=== PATIENT | male | born 1945 | race Caucasian/White ===

== ENCOUNTER 2023-10-12 16:09 | Observation (INO) | payer MEDICARE, OTHER, SELFPAY ==
[2023-10-12] VITALS (11 sets, daily range): BP systolic 136–160; BP diastolic 64–87; PULSE 71; O2SAT 96; BMI 29.5
--- NOTE | 2023-10-12 11:30 | ED.GENMED ---
History of Present Illness
General
Chief Complaint: Weakness
Source: patient and ambulance crew
Exam Limitations: none
Time Seen by Provider: 10/12/23 11:30
Nursing documentation reviewed up to this point in time: agreed with
History of Present Illness
History of Present Illness:
78-year-old male with history of HTN, HLD, CVA, prostate cancer with prostatectomy 2013, presents via EMS who states daughter was unable to reach patient by phone this morning, she called a neighbor who checked on patient, could not get into the
house, called the police, please had to crawl through a window and found patient on the floor of his bedroom, alert, mildly confused stating he did not fall rather he was weak and put himself onto the floor. He reportedly states he was on the floor
for a 'couple of hours.'
Past History
Past History
ED Past Medical History: CVA and Other (Diverticulosis and diverticulitis)
ED Past Surgical History: None
Social History
Tobacco: Non-smoker
Alcohol: Occasional
Personal:
Living: with family
Family History
Family History: Negative Diabetes, Hypertension, Early CAD, Asthma or Cancer
Review of Systems
Review of Systems
Allergies reviewed?: Yes
All Other Systems: ROS reviewed and negative except as documented in HPI and ROS
Constitutional: Reports fatigue; Denies fever
EENT: Denies sore throat
Respiratory: Denies trouble breathing
Cardiac: Denies chest pain or syncope
ABD/GI: Denies abdominal pain, nausea, vomiting, diarrhea, constipated or anorexia
: Reports incontinence; Denies dysuria, frequency, difficulty voiding or urgency
Musculoskeletal: Reports no symptoms
Skin: Reports no symptoms
Neurological: Reports no symptoms
Phy Exam
Physical Exam
Physical Exam:
GENERAL: No acute distress. A&Ox3.
CONSTITUTIONAL: Afebrile.
EYES: PERRL, conjunctivae normal
Neck: Supple
ENMT: moist mucus membranes, Pharynx nl
RESPIRATORY: Regular respirations, nonlabored, lungs clear.
CARDIOVASCULAR: Regular rate and rhythm, no murmurs, no rubs.
GI: Soft, nontender, normal BS
MUSCULOSKELETAL: No spinal bony tenderness. No tenderness of extremities. Nod edema. Well perfused.
SKIN: Warm, dry, pink
PSYCH: Normal mood and affect. Well kept, interactive and appropriate
NEUROLOGIC: Awake, alert and oriented x 3. Knows place, name, president. Not sure on year. Speech clear. Strength equal throughout /5. No focal neurological deficits
Course
Orders/Labs/Results
Orders:
Orders
10/12/23 11:30
0.9% Sodium Chloride 1000 ml [Nss] 1,000 ml IV BOLUS
10/12/23 11:33
CT Head W/o Iv Contrast Urgent
Comment:
Reason For Exam: weakness, found awake on floor
10/12/23 11:40
CPK Isoenzyme Urgent
Complete Blood Count/With Diff Urgent
Comprehensive Metabolic Panel Urgent
Troponin I Urgent
Comment: ADD ON
10/12/23 11:58
Add On- LAB Urgent
Tests Added?: Troponin
10/12/23 11:59
Electrocardiogram (*1) Urgent
Reason for Study: Fatigue / Weakness
EKG- Treatment ONCE
10/12/23 12:30
Urinalysis Reflex To Culture Urgent
Date Specimen was Collected: 10/12/23
Time Specimen was Collected: 12:29
10/12/23 12:55
Case Management Consult ONCE
Case Management Consult: Discharge Planning
Comment: Pt w falls, not safe at home, live by self. 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 She is in
process of selling his home and she needs to put addition on her home before he moves in. Is
interested in rehab for him.
10/12/23 13:04
Physical Therapy Consult [Pt Eval And Treat] Urgent
Treatment: ambulate, uses cane, doesn't have his here, falls.
Activity Level: As Tolerated
10/12/23 15:28
Admit/Transfer Patient As Directed
Co-Sign Provider:
Level of Care: Observation services
Assign to:: Telemetry
Physician / Group: molly rodriguez
Diagnosis: ambulatory dysfunction
Reason for Telemetry: Other
Other Reason for Telemetry: fall
Date to Stop Telemetry: 10/14/23
Time to Stop Telemetry: 11:00
10/12/23 15:29
Code Status As Directed
Resuscitation Status: Full Code
10/12/23 15:45
COVID-19 Antigen Stat
Source: Nasal Swab
10/14/23 11:00
DC Protocol for Telemetry ONCE
Abnormal Lab Results
10/12/23 10/12/23
11:40 12:30
RBC 3.83 L 10^6/uL
(4.70-6.10)
Hgb 11.6 L g/dL
(13.0-18.0)
Hct 35.4 L %
(39.0-52.0)
MCHC 32.8 L g/dL
(33.0-37.0)
RDW 15.1 H %
(11.5-14.5)
Absolute Lymphs (auto) 0.7 L 10^3/uL
(1.2-3.4)
Neutrophils % 83.1 H %
(42.2-75.2)
Lymphocytes % 9.1 L %
(20.5-51.1)
Carbon Dioxide 31 H mmol/L
(22-30)
Total Bilirubin 1.8 H mg/dl
(0.2-1.3)
Total Creatine Kinase 343 H U/L
(55-170)
CK-MB (CK-2) 3.6 H ng/ml
(0.0-2.4)
Total Protein 6.1 L g/dl
(6.3-8.2)
Urine Ketones 2+ A
(Negative)
Urine Urobilinogen 2+ A
(Neg - 1+)
10/12/23 11:40
10/12/23 11:40
Vital Signs
Initial and Last Documented VS:
Initial Vital Signs
Temp Pulse Resp Pulse Ox
98.0 F 60 18 99
10/12/23 11:36 10/12/23 11:36 10/12/23 11:36 10/12/23 11:36
Last Documented Vital Signs
Temp Pulse Resp BP Pulse Ox
98.0 F 85 16 141/77 98
10/12/23 11:36 10/12/23 16:30 10/12/23 16:30 10/12/23 16:00 10/12/23 16:30
MDM/Problems Addressed
Differential Diagnosis Includes:
dehydration, TIA,
MDM/Problems Addressed:
78-year-old male with history of HTN, HLD, CVA, prostate cancer with prostatectomy 2013, presents via EMS who states daughter was unable to reach patient by phone this morning, she called a neighbor who checked on patient, could not get into the
house, called the police, please had to crawl through a window and found patient on the floor of his bedroom, alert, mildly confused stating he did not fall rather he was weak and put himself onto the floor and could not get up. He reportedly
states he was on the floor for a 'couple of hours.'
Patient is in no distress, he is awake, pleasant and joking, no apparent injury if there was a history of fall
EKG: Normal sinus rhythm
10/12/2023 1238 PM
CBC with no clinically significant abnormality
CMP with no clinically significant abnormality
Troponin normal
Total creatinine kinase mildly elevated at 343
10/12/[address] no acute abnormality
P/T in and deems patient definitely not safe going home.
Case management in to discuss discharge planning to rehab facility
Plan: admit: ambulatory dysfunction, fall
Stable
*EKG
EKG Intrepretation Date: 10/12/23
Interpretation: normal
Rate: normal
Rhythm: sinus
Lefors: normal axis
Interval: normal interval
QRS Pattern: normal QRS
Ischemia: no ischemia
*Critical Care Note
Total Time (30-74mins, 75-104mins- exclusive of procedures): Not Applicable
ED Attending Note
-
Portions of this chart may have been created with voice recognition software.� Occasional wrong word or��sound alike� substitutions may have occurred due to the inherent limitations of voice recognition software.
Discharge Plan
Departure
Patient Disposition: Admit
Date of Disposition: 10/12/23
Time of Disposition: 14:49
Admit to: Med/Surg
Presentation/result/management discussed w/ accepting MD/DO: Hospitalist
Condition: Fair
Discharge Problem:
Ambulatory dysfunction, Fall
Interventions
Interventions:
*Risk Screen - Suicide Last Done: 10/12/23 11:52
*General Assessment Last Done: 10/12/23 11:52
*Neglect/Abuse Screening Last Done: 10/12/23 11:52
*ED COVID-19 Vaccine History Last Done: 10/12/23 11:52
ED- Cardiac Assessment Last Done: 10/12/23 11:52
ED- Neurological Assessment Last Done: 10/12/23 11:37
ED- Pulmonary Assessment Last Done: 10/12/23 11:37
[2023-10-12] MEDS: NSS 1000 IV ×2 (11:43→18:21)
[2023-10-12 11:52] LABS: % Basophils 0.4 % (0-2); % Eosinophils 0.7 % (0-6); % Immature Granulocytes 0.3 % (0-0.5); % Lymphocytes 9.1 % (20.5-51.1); % Monocytes 6.4 % (1.7-9.3); % Neutrophils 83.1 % (42.2-75.2); Absolute Eosinophils 0.1 10^3/uL (0-0.7); Absolute Lymphocytes 0.7 10^3/uL (1.2-3.4); Absolute Monocytes 0.5 10^3/uL (0.1-0.6); Absolute Neutrophils 6.1 10^3/uL (1.4-6.5); Hematocrit 35.4 % (39.0-52.0); Hemoglobin 11.6 g/dL (13.0-18.0); Mean Corp Hgb Conc. 32.8 g/dL (33.0-37.0); Mean Corpuscular Hgb 30.3 pg (27.0-31.0); Mean Corpuscular Volume 92.4 fL (80.0-94.0); Mean Platelet Volume 9.9 fL (7.4-10.4); Nucleated Red Blood Cells % 0 % (-); Platelet Count 171 10^3/uL (130-400); Red Blood Cell Count 3.83 10^6/uL (4.70-6.10); Red Cell Dist. Width 15.1 % (11.5-14.5); White Blood Cell Count 7.3 10^3/uL (4.8-10.8)
[2023-10-12 12:05] LABS: ALT (SGPT) 25 U/L (0-50); AST (SGOT) 44 U/L (17-59); Albumin 3.5 g/dl (3.5-5.0); Alkaline Phosphatase 96 U/L (38-126); Blood Urea Nitrogen 9 mg/dl (9-20); Calcium 8.9 mg/dl (8.4-10.2); Carbon Dioxide 31 mmol/L (22-30); Chloride 102 mmol/L (98-107); Glucose 87 mg/dl (70-99); Potassium 3.7 mmol/L (3.5-5.1); Sodium 136 mmol/L (135-145); Total Bilirubin 1.8 mg/dl (0.2-1.3); Total CK 343 U/L (55-170); Total Protein 6.1 g/dl (6.3-8.2); eGFR > 60.00
[2023-10-12 12:23] LABS: Troponin I 0.024 ng/ml
[2023-10-12 12:42] LABS: Urine Albumin Negative (Neg - Trace); Urine Bilirubin Negative (Negative); Urine Character Clear (Clear); Urine Color Yellow; Urine Glucose Negative (Negative); Urine Ketone 2+ (Negative); Urine Leukocyte Negative (Negative); Urine Nitrite Negative (Negative); Urine Occult Blood Negative (Negative); Urine Urobilinogen 2+ (Neg - 1+)
[2023-10-12 12:52] LABS: CKMB 3.6 ng/ml (0.0-2.4)
--- NOTE | 2023-10-12 13:22 | CM ---
Addendum entered by Estefania Luna RN 10/12/23 17:12:
OBS letter given.
Addendum entered by Estefania Luna RN 10/12/23 15:09:
CM spoke with patient's daughter. Cm discussed possibility of [facility] program for placement. CM will follow up with [facility] to see if patient is eligible for program. If not, then family will make plans for home discharge.
Original Note:
CM was consulted to discuss LTC planning. As per daughter, patient is lives alone and she is reporting that he is falling multiple times. Patient does not have a history of placement and as per daughter, he has been refusing LTC placement efforts.
Patient's daughter stated that she plans to have an addition added to her home for the patient to reside in .Patient's daughter stated that because her home is open concept patient would have difficulty navigating around her home as he would not
have furniture to hold on to.
CM advised that patient does not have funding for placement at this time as he does not have three nights as an inpatient. Patient's daughter declined self pay for SNF.
Patient's daughter further stated that she would be agreeable to home care in patient's home. Daughter feels that patient's behavior is too disruptive during the evening for her to take care of him at her home at this time.
CM will await PT recommendations.
--- NOTE | 2023-10-12 15:06 | HPS.HSE ---
Addendum entered and electronically signed by Joaquin Alford MD 10/12/23 15:38:
I saw and examined the patient.
The FACILITY MAINTENANCE HELPER's note was reviewed and I agree with the note.
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 patient lives
by himself and daughter tried to call him today but did not get any answer. Eventual counter caser were called and patient was found on floor. Unclear how long patient was on floor. h/o gathered from family at bedside. Does have h/o of weakness and
mechanical fall. No syncope/cardiac h/o . pt denies of having any sob/chest pain/abd pain/diarrhea. Some chronic leg swelling bilaterally, no h/o HF.
HEENT: No pallor, cyanosis, or jaundice. Throat clear.
NECK: Supple. No JVD.
RESPIRATORY: Lungs clear to auscultation.
CVS: S1, S2 normal. RRR. No murmur, rub or gallop.
ABDOMEN: Soft, non-tender. No distension. BS+/normal.
EXTREMITIES: b/l edema . dry skin
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 No focal deficits. sev hearing loss
Generalized weakness
Mild traumatic rhabdomyolysis
- no reported fall/details unclear as found down
- Minimal rhabdo w/o renal failure - maintain on IVF
- Check covid/ua/Ct head
- pt/ot eval
- admit for obs floor
Essential HTN
- continue home dose of lisinopril
Full code
Full
Original Note:
Family Physician
-
Family Physician: Adams Rios
Chief Complaint
-
falll
History of Present Illness
78 year old with PMH for CVA< diverticulitis, HLD, HTN presented to us after fall. not sure how fall occurred. daughter couldn't get hold off him since yesterday morning. patient was found on the floor next to his bedroom by Police. patient denied
any RUVALCABA,dizzy. denied chest pain, sob. denied abdominal pain,n ,v,d. denied dysuria or hematuria.
CT head with no acute finding. CK elevated. admitting for further managment.
Medical History
Past Medical History
Past Medical History: Reports Other
Additional Past Medical History:
hemorrhagic stroke
HTN
HLD
prostate cancer
Past Surgical History: Reports Other
Additional Past Surgical History:
left wrist surgery
knee replacement
Social History
Tobacco: Former Smoker
Alcohol: Occasional
Drug: None
Personal: Single
Living: Alone
Family History
Family History: Not pertinent
Allergies / Home Medications
Allergies reflects when Allergies were last updated in [employer].
Home Medications with original date entered in [employer]
Allergy/Medication List:
Allergies
Allergy/AdvReac Type Severity Reaction Status Date / Time
cephalexin monohydrate Allergy rash,itchin Verified 03/02/18 12:26
[From Keflex] g
dust/pollen Allergy sneezing/watery Uncoded 03/02/18 12:26
eyes
Home Medications
atorvastatin 40 mg tablet 40 mg PO QPM 02/06/18
camphor-menthol 0.2 %-3.5 % topical gel 1 applic topical DAILY shoulder pain ##0 02/06/18
ibuprofen 200 mg tablet (Advil) 600 mg PO TID PRN mild pain 02/06/18
lisinopril 5 mg tablet 5 mg PO DAILY 02/06/18
aspirin 81 mg tablet,delayed release 81 mg PO DAILY 10/12/23
trolamine salicylate 10 % topical cream (Aspercreme) 1 applic topical DAILY PRN shoulder pain 10/12/23
Review of Systems
-
Constitutional: Reports No Symptoms
EENT: Reports No Symptoms
Respiratory: Reports No Symptoms
Cardiac: Reports No Symptoms
Abdomen/GI: Reports No Symptoms
: Reports No Symptoms
Musculoskeletal: Reports No Symptoms
Skin: Reports No Symptoms
Neurological: Reports No Symptoms
Endocrine: Reports No Symptoms
Hematologic/Lymphatic: Reports No Symptoms
Psych: Reports No Symptoms
Physical Exam
Vital Signs
Vital Signs
Temp Pulse Resp Pulse Ox
98.0 F 63 22 99
10/12/23 11:36 10/12/23 11:45 10/12/23 11:45 10/12/23 11:45
Physical Exam
General: Well Developed, Well Nourished and No Apparent Distress
HEENT: NormoCephalic, Moist mucous membranes and Atraumatic
Respiratory: Clear
Cardiac: S1/S2 and Regular Rhythm; No Murmur or Rub
GI: Soft, Non Tender, Non Distended and Normal Bowel Sounds; No Organomegaly
Rectal: Deferred by Provider
Musculoskeletal: No Clubbing, No Cyanosis and No Edema
Skin: No Rash
Neuro: AO x 3 and Nonfocal/grossly intact
Psych: Calm
Laboratory Results
-
10/12/23 11:40
10/12/23 11:40
Laboratory Results
Total Bilirubin 1.8 mg/dl (0.2-1.3) H 10/12/23 11:40
AST 44 U/L (17-59) 10/12/23 11:40
ALT 25 U/L (0-50) 10/12/23 11:40
Alkaline Phosphatase 96 U/L (38-126) 10/12/23 11:40
Troponin I 0.024 ng/ml 10/12/23 11:40
Data Reviewed
-
CT Scan: Report Reviewed by me
Lab Data: Labs Reviewed by me
Impression/Plan
-
#fall/ambulatory dysfunction
-head CT with no acute finding
-EKG with NSR
-obtain COVID, orthostatics
-PT/OT consult
#rhabdo likely from fall
-CK 343
-hydrate with fluids
-monitor CK in AM
#hxt of hemorrhagic stroke/TIA
-asa, statin
#essential htn
-lisinopril continued
#DVT prophylaxis
-Lovenox
#CODE status
-full code
[2023-10-12 17:19] LABS: COVID-19 Antigen Negative (Negative)
--- NOTE | 2023-10-12 18:18 | PTCARENOTE ---
pt arrived at 1738 via stretcher from ED. pt pulled over from stretcher to bed rt ambulatory dysfunction. son at bedside helped RN compete admission questions. admission completed by this nurse. pt AAOx3 very ELIM IRA with hearing aids
[2023-10-12] MEDS: LIPITOR 40 MG PO (18:21)
[2023-10-12] MEDS: LOVENOX 40 MG SC (18:31)
[2023-10-12] MEDS: DESENEX/MITRAZOL/ZEASORB 1 APPLIC TOPICAL (20:41)
[2023-10-13] VITALS (7 sets, daily range): BP systolic 120–162; BP diastolic 55–87; PULSE 64–83; O2SAT 98; BMI 28.5; BMI 29.2
[2023-10-13 06:03] LABS: Hematocrit 33.4 % (39.0-52.0); Hemoglobin 11.2 g/dL (13.0-18.0); Mean Corp Hgb Conc. 33.5 g/dL (33.0-37.0); Mean Corpuscular Volume 89.5 fL (80.0-94.0); Mean Platelet Volume 11.2 fL (7.4-10.4); Platelet Count 144 10^3/uL (130-400); Red Blood Cell Count 3.73 10^6/uL (4.70-6.10); Red Cell Dist. Width 15.4 % (11.5-14.5); White Blood Cell Count 5.6 10^3/uL (4.8-10.8)
[2023-10-13] MEDS: NSS 1000 IV ×2 (06:16→19:59)
[2023-10-13 06:38] LABS: Blood Urea Nitrogen 11 mg/dl (9-20); Calcium 8.6 mg/dl (8.4-10.2); Carbon Dioxide 26 mmol/L (22-30); Chloride 106 mmol/L (98-107); Creatine Phosphokinase 129 U/L (55-170); Estimated Creatinine Clearance 88 ml/min; Glucose 81 mg/dl (70-99); Potassium 3.6 mmol/L (3.5-5.1); Sodium 138 mmol/L (135-145); eGFR > 60.00
--- NOTE | 2023-10-13 08:14 | W.PN.HOSP.TC ---
Today's Communication/Plan
-
PT/OT
Recheck CK
Assessment / Plan
Assessment / Plan
Physical Exam
HEENT: Not in acute distress.
NECK: Supple.
RESPIRATORY: Lungs clear to auscultation.
CVS: S1, S2 normal. RRR.�
ABDOMEN: Soft, non-tender. No distension. BS+/normal.
EXTREMITIES: b/l edema . dry skin
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 No focal deficits. sev hearing loss
Assessment/Plan
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 patient lives
by himself and daughter tried to call him today but did not get any answer. Eventual tour counselor were called and patient was found on floor. Unclear how long patient was on floor. h/o gathered from family at bedside. Does have h/o of weakness and
mechanical fall. No syncope/cardiac h/o . pt denies of having any sob/chest pain/abd pain/diarrhea. Some chronic leg swelling bilaterally, no h/o HF.
#Generalized weakness
#Mild traumatic rhabdomyolysis
- no reported fall/details unclear as found down
- Minimal rhabdo w/o renal failure - maintain on IVF
- Covid negative/UA showed ketones and urobilinogen/Ct head with no acute findings
- pt/ot eval
#Essential HTN
- continue home dose of lisinopril
#fall/ambulatory dysfunction
-head CT with no acute finding
-EKG with NSR
-obtain orthostatics
-PT/OT consult
#rhabdo likely from fall
-CK 343
-hydrate with fluids
-Recheck CK
#hxt of hemorrhagic stroke/TIA
-asa, statin
#essential htn
-lisinopril continued
#DVT prophylaxis
-Lovenox
#CODE status
-full code
Anticipated Discharge: 24 - 48 hours
Subjective/Interval History
-
Date of Service: October 13, 2023
Patient was seen and examined, and case was discussed with patient's nurse. Other than mild pain, patient denied any other new, significant complaints.
Objective Data
-
Labs:
Laboratory Results
10/13/23
05:22
WBC 5.6
Hgb 11.2 L
Hct 33.4 L
Plt Count 144
Sodium 138
Potassium 3.6
Chloride 106
Carbon Dioxide 26
BUN 11
Creatinine 0.7
Glucose 81
Calcium 8.6
Vital Signs:
Vital Signs
Temp Pulse Resp BP Pulse Ox
97.4 F 65 18 139/79 100
10/13/23 03:27 10/13/23 03:27 10/13/23 03:27 10/13/23 03:27 10/13/23 03:27
I&O
10/12/23 10/13/23 10/14/23
06:59 06:59 06:59
Intake Total 1120 / 1120
Output Total 375 / 375
Balance 745 / 745
[2023-10-13] MEDS: ASPIR LOW (ENTERIC COATED) 81 MG PO (08:32)
[2023-10-13] MEDS: ZESTRIL 5 MG PO (08:32)
[2023-10-13] MEDS: DESENEX/MITRAZOL/ZEASORB 1 APPLIC TOPICAL ×2 (08:33→22:12)
--- NOTE | 2023-10-13 15:47 | CM ---
Addendum entered by Sherry Soto 10/13/23 16:00:
Received call from pts daughter Shruthi. Updated regarding PT recs and status regarding snf insurance coverage at this time. Encouraged to go to Medicare.gov site to choose facilities. Family plan would be snf then home with family support and home
services. Aware pt would be self-pay at this time for snf.
Daughter reports she will look into facilities and return call to CM tomorrow
Original Note:
Chart reviewed
CM following for d/c planning
PT recs - snf vs 24 hour care
Contacted Darcy with [employer] regarding possible [employer] program for placement
Per Darcy pt is not on their Medicare list and not eligible for program
Attempted to contact pts daughter Shruthi Krause [phone] to make aware and discuss d/c planning - LM with call back #
CM will follow for d/c needs
[2023-10-13] MEDS: LOVENOX 40 MG SC (17:17)
[2023-10-13] MEDS: LIPITOR 40 MG PO (17:17)
--- NOTE | 2023-10-13 22:17 | PTCARENOTE ---
Report given to 4W RN. Pt transferred at approx 2130 with belongings at bedside.
--- NOTE | 2023-10-13 22:45 | TRANSFER ---
Addendum entered by Dominick Candelaria RN 10/14/23 01:01:
Pt now in room 436 bed 2.
Original Note:
Pt arrived to unit from [address]. Pt is AAOx2 to person and place but is forgetful and very hard of hearing. Pt rings appropriately and was oriented to the room by this RN. VS on transfer stable. Will continue to monitor.
[2023-10-13] MEDS: TYLENOL 650 MG PO (23:00)
[2023-10-14] VITALS (8 sets, daily range): BP systolic 142–162; BP diastolic 72–88; PULSE 62–74; BMI 29.0
[2023-10-14] MEDS: TYLENOL 650 MG PO (03:38)
--- NOTE | 2023-10-14 05:50 | PTCARENOTE ---
IV normal saline at 80 mL/hr renewed by house LETTY Banerjee.
[2023-10-14 07:42] LABS: Creatine Phosphokinase 60 U/L (55-170)
[2023-10-14 08:56] LABS: % Basophils 0.4 % (0-2); % Eosinophils 1.4 % (0-6); % Immature Granulocytes 0.2 % (0-0.5); % Lymphocytes 12.8 % (20.5-51.1); % Monocytes 8.3 % (1.7-9.3); % Neutrophils 76.9 % (42.2-75.2); Absolute Eosinophils 0.1 10^3/uL (0-0.7); Absolute Lymphocytes 0.7 10^3/uL (1.2-3.4); Absolute Monocytes 0.4 10^3/uL (0.1-0.6); Absolute Neutrophils 3.9 10^3/uL (1.4-6.5); Hematocrit 32.1 % (39.0-52.0); Hemoglobin 10.5 g/dL (13.0-18.0); Mean Corp Hgb Conc. 32.7 g/dL (33.0-37.0); Mean Corpuscular Hgb 30.1 pg (27.0-31.0); Nucleated Red Blood Cells % 0 % (-); Platelet Count 143 10^3/uL (130-400); Red Blood Cell Count 3.49 10^6/uL (4.70-6.10); Red Cell Dist. Width 15.1 % (11.5-14.5); White Blood Cell Count 5.1 10^3/uL (4.8-10.8)
[2023-10-14 09:31] LABS: ALT (SGPT) 18 U/L (0-50); AST (SGOT) 24 U/L (17-59); Albumin 2.9 g/dl (3.5-5.0); Alkaline Phosphatase 78 U/L (38-126); Blood Urea Nitrogen 10 mg/dl (9-20); Calcium 8.4 mg/dl (8.4-10.2); Carbon Dioxide 29 mmol/L (22-30); Chloride 104 mmol/L (98-107); Estimated Creatinine Clearance 88 ml/min; Glucose 99 mg/dl (70-99); Potassium 3.2 mmol/L (3.5-5.1); Sodium 138 mmol/L (135-145); Total Bilirubin 0.9 mg/dl (0.2-1.3); Total Protein 5.5 g/dl (6.3-8.2); eGFR > 60.00
[2023-10-14] MEDS: DESENEX/MITRAZOL/ZEASORB 1 APPLIC TOPICAL ×2 (10:09→21:34)
[2023-10-14] MEDS: ZESTRIL 5 MG PO (10:09)
[2023-10-14] MEDS: ASPIR LOW (ENTERIC COATED) 81 MG PO (10:09)
[2023-10-14] MEDS: NSS 1000 IV (10:10)
--- NOTE | 2023-10-14 12:09 | CM ---
center manager reviewed patient's chart and spoke with patient and patient's daughter, Shruthi who is a teacher. Patient's plan is to return to his home tomorrow, patient's son will pick patient up in the morning and stay with patient for a few days,
daughter plans on selling patient's home and placing patient in respite care till she can set up her home for patient, oil field caser reached out to patient's daughter regarding visiting nurses and referral sent to [facility].
Plan; Home with Elvira son to stay with patient.
Elvira Valentin
[phone]
--- NOTE | 2023-10-14 13:30 | PTCARENOTE ---
Received patient at 1330. Patient is oriented to self only. Patient has made multiple attempts to climb OOB and go to his car. Patient insisted on using bathroom for BM. Patient assisted to standing position with max assist x2 and walker, patient
was only able to take two steps. BSC brought to patient, patient voided without difficulty, no BM. Patient attempted to pull out IV. Patient placed on medsitter at 1600.
--- NOTE | 2023-10-14 15:44 | PTCARENOTE ---
Transferred care of Pt to GABRIELLA Pena during this shift. Pt is confused, bed alarm in place. Frequently ringing call caldera and asking for urinal and also to leave to get to his car which he states is in the parking lot. Last vital signs WNL- T 97.6, HR
64, N/S/R on tele monitor, BP 146/72, RR 16, SpO2 99% on RA. No c/o pain at this time.
--- NOTE | 2023-10-14 16:48 | W.PN.HOSP.TC ---
Today's Communication/Plan
-
Anticipated discharge tomorrow
Assessment / Plan
Assessment / Plan
Physical Exam
HEENT: Not in acute distress.
NECK: Supple.
RESPIRATORY: Lungs clear to auscultation.
CVS: S1, S2 normal. RRR.�
ABDOMEN: Soft, non-tender. No distension. BS+/normal.
EXTREMITIES: b/l edema . dry skin
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 No focal deficits. sev hearing loss
Assessment/Plan
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 patient lives
by himself and daughter tried to call him (on the day of presentation) but did not get any answer. Eventually magento web developer were called and patient was found on floor. Unclear how long patient was on floor. History was gathered from family at bedside. Does
have h/o of weakness and mechanical fall. No syncope/cardiac h/o . pt denies of having any sob/chest pain/abd pain/diarrhea. Some chronic leg swelling bilaterally, no h/o HF.
#Generalized weakness
#Mild traumatic rhabdomyolysis
- no reported fall/details unclear as found down
- Minimal rhabdo w/o renal failure - given IV fluids
- Covid negative/UA showed ketones and urobilinogen/Ct head with no acute findings
- pt/ot eval
#Essential HTN
- continue home dose of lisinopril
#fall/ambulatory dysfunction
-head CT with no acute finding
-EKG with NSR
-obtain orthostatics -- negative orthostatic vital signs
-PT/OT consult
#rhabdo likely from fall
-CK 343 initially
-hydrate with fluids
-Recheck CK
#hxt of hemorrhagic stroke/TIA
-asa, statin
#essential htn
-lisinopril continued
#DVT prophylaxis
-Lovenox
#CODE status
-full code
Anticipated Discharge: Within 24 hours
Subjective/Interval History
-
Date of Service: October 14, 2023
Patient was seen and examined. He was lying in bed and reported chronic pain of his upper extremity joints and shoulders but otherwise denied any other new significant symptoms or complaints.
Objective Data
-
Labs:
Laboratory Results
10/14/23
08:41
WBC 5.1
Hgb 10.5 L
Hct 32.1 L
Plt Count 143
Sodium 138
Potassium 3.2 L
Chloride 104
Carbon Dioxide 29
BUN 10
Creatinine 0.7
Glucose 99
Calcium 8.4
Total Bilirubin 0.9
AST 24
ALT 18
Alkaline Phosphatase 78
Vital Signs:
Vital Signs
Temp Pulse Resp BP Pulse Ox
97.8 F 72 16 161/84 98
10/14/23 15:11 10/14/23 15:11 10/14/23 15:11 10/14/23 15:11 10/14/23 15:11
I&O
10/13/23 10/14/23 10/15/23
06:59 06:59 06:59
Intake Total 1120 / 1120 1040 / 1040
Output Total 375 / 375 1200 / 1200
Balance 745 / 745 -160 / -160
[2023-10-14] MEDS: LOVENOX 40 MG SC (17:22)
[2023-10-14] MEDS: LIPITOR 40 MG PO (17:22)
--- NOTE | 2023-10-14 22:49 | PTCARENOTE ---
Pt voiding every half hour approx 100-150 ml of urine. Bladder scanned for 245ml. Will continue to monitor.
[2023-10-15] MEDS: NSS 1000 IV (01:27)
[2023-10-15] MEDS: NSS IV (01:27)
[2023-10-15 02:23] VITALS: BP 144/73; BMI 28.0
[2023-10-15 07:30] VITALS: BP 140/60
[2023-10-15 08:12] LABS: Creatine Phosphokinase 36 U/L (55-170)
[2023-10-15 08:54] LABS: Hematocrit 32.6 % (39.0-52.0); Hemoglobin 10.8 g/dL (13.0-18.0); Mean Corp Hgb Conc. 33.1 g/dL (33.0-37.0); Mean Corpuscular Volume 90.6 fL (80.0-94.0); Platelet Count 169 10^3/uL (130-400); Red Cell Dist. Width 15.1 % (11.5-14.5); White Blood Cell Count 6.1 10^3/uL (4.8-10.8)
[2023-10-15 09:19] LABS: ALT (SGPT) 19 U/L (0-50); AST (SGOT) 25 U/L (17-59); Albumin 3.1 g/dl (3.5-5.0); Alkaline Phosphatase 82 U/L (38-126); Blood Urea Nitrogen 9 mg/dl (9-20); Calcium 8.7 mg/dl (8.4-10.2); Carbon Dioxide 29 mmol/L (22-30); Chloride 103 mmol/L (98-107); Estimated Creatinine Clearance 88 ml/min; Glucose 109 mg/dl (70-99); Potassium 3.5 mmol/L (3.5-5.1); Sodium 137 mmol/L (135-145); Total Bilirubin 0.9 mg/dl (0.2-1.3); Total Protein 5.8 g/dl (6.3-8.2); eGFR > 60.00
[2023-10-15] MEDS: ZESTRIL 5 MG PO (09:35)
[2023-10-15] MEDS: ASPIR LOW (ENTERIC COATED) 81 MG PO (09:35)
[2023-10-15] MEDS: KCL 40 MEQ PO (11:17)
[2023-10-15] MEDS: DESENEX/MITRAZOL/ZEASORB 1 APPLIC TOPICAL (11:17)
[2023-10-15 11:28] VITALS: BP 154/78
--- NOTE | 2023-10-15 11:51 | W.PN.HOSP.TC ---
Today's Communication/Plan
-
Discharge today
Assessment / Plan
Assessment / Plan
Physical Exam
HEENT: Not in acute distress.
NECK: Supple.
RESPIRATORY: Lungs clear to auscultation.
CVS: S1, S2 normal. RRR.�
ABDOMEN: Soft, non-tender. No distension. BS+/normal.
EXTREMITIES: b/l edema . dry skin
SOUND DESIGNER: AOx3. No focal deficits. sev hearing loss
Assessment/Plan
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 patient lives
by himself and daughter tried to call him (on the day of presentation) but did not get any answer. Eventually security support analyst were called and patient was found on floor. Unclear how long patient was on floor. History was gathered from family at bedside. Does
have h/o of weakness and mechanical fall. No syncope/cardiac h/o . pt denies of having any sob/chest pain/abd pain/diarrhea. Some chronic leg swelling bilaterally, no h/o HF.
#Generalized weakness
#Mild traumatic rhabdomyolysis
- no reported fall/details unclear as found down
- Minimal rhabdo w/o renal failure - given IV fluids
- Covid negative/UA showed ketones and urobilinogen/Ct head with no acute findings
- pt/ot eval
#Essential Hypertension
- continue home dose of Lisinopril
#Fall/ambulatory dysfunction
-head CT with no acute finding
-EKG with NSR
-obtain orthostatics -- negative orthostatic vital signs
-PT/OT consult
#rhabdo likely from fall
-CK 343 initially, now improved
-hydrate with fluids
#History of of hemorrhagic stroke/TIA
-asa, statin
#essential htn
-lisinopril continued
#DVT prophylaxis
-Lovenox
#CODE status
-full code
More than 30 minutes spent in discharge including
Final examination of the patient
Summarizing hospital stay
Instructions for continuing care to all relevant caregivers
Preparation of discharge records, prescriptions, and referral forms
Total time spent (in minutes): 38
Anticipated Discharge: Today
Subjective/Interval History
-
Date of Service: October 15, 2023
Patient was seen and examined. He reported no new symptoms or complaints.
Objective Data
-
Labs:
Laboratory Results
10/15/23
08:41
WBC 6.1
Hgb 10.8 L
Hct 32.6 L
Plt Count 169
Sodium 137
Potassium 3.5
Chloride 103
Carbon Dioxide 29
BUN 9
Creatinine 0.7
Glucose 109 H
Calcium 8.7
Total Bilirubin 0.9
AST 25
ALT 19
Alkaline Phosphatase 82
Vital Signs:
Vital Signs
Temp Pulse Resp BP Pulse Ox
98.3 F 73 20 154/78 98
10/15/23 11:28 10/15/23 11:28 10/15/23 11:28 10/15/23 11:28 10/15/23 11:28
I&O
10/14/23 10/15/23 10/16/23
06:59 06:59 06:59
Intake Total 1040 / 1040 1920 / 1920
Output Total 1200 / 1200 3400 / 3400
Balance -160 / -160 -1480 / -1480
--- NOTE | 2023-10-15 14:55 | W.DS.TRANS ---
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
-
Discharge Instructions:
Discharge Diagnosis/Procedures #Generalized weakness
#Mild traumatic rhabdomyolysis
#Essential Hypertension
#Fall/ambulatory dysfunction
#History of of hemorrhagic stroke/Transient
Ischemic Attack
Diet 2 Gram Sodium,Low Cholesterol
Activity As tolerated
Driving Restrictions No driving
Other Services VN
Instructions:
Stand-Alone Forms:
Changes to Home Medications: Yes
Discharge Medications:
DC Medications w/original date entered in [facility]
atorvastatin 40 mg tablet 40 mg PO QPM High Cholesterol 02/06/18
camphor-menthol 0.2 %-3.5 % topical gel 1 applic topical DAILY shoulder pain ##0 02/06/18
lisinopril 5 mg tablet 5 mg PO DAILY Blood Pressure 02/06/18
aspirin 81 mg tablet,delayed release 81 mg PO DAILY Blood Clot Prevention/Tx 10/12/23
trolamine salicylate 10 % topical cream (Aspercreme) 1 applic topical DAILY PRN shoulder pain 10/12/23
Home Medication Changes
Stopped Ibuprofen
Pending Results: No
Total time spent discharging patient (in min): 38
--- NOTE | 2023-10-15 15:00 | CM ---
Patient is for discharge to home today with [facility] visiting nurses.
Elvira Valentin
[phone]
[2023-10-15 15:58] VITALS: BP 153/80
[2023-10-15] MEDS: LIPITOR 40 MG PO (17:40)
[2023-10-15] MEDS: LOVENOX SC (17:40)
--- NOTE | 2023-10-22 11:23 | W.DCSUMMARY ---
Discharge Summary
Discharge Data
Date of Admission: 10/12/23
Date of Discharge: 10/15/23
Total time spent discharging patient (in min): 38
-
Pending Results: No
Hospital Course
78 year old male with past medical history of weakness and mechanical falls, prostate cancer status post prostatectomy/radiation in remission, hypertension, history of small hemorrhagic cerebrovascular accident without residual weakness '13, history
of diverticulitis, sev SNHL, and hyperlipidemia was brought into the emergency room after being found down at home. Patient was noted to live by himself and patient's daughter tried to call him but did not get any answer. Eventually police were
called and patient was found on the floor, and it was unclear how long patient was on floor.
Patient was found to have mild traumatic rhabdomyolysis and started on intravenous fluids. COVID was negative. CT Head showed no acute findings. Patient had negative orthostatic vital signs. Physical Therapy and Occupational Therapy were ordered.
Patient was stable for discharge.
Discharge Plan
-
Patient Disposition: Home with Home Care
Discharge Diagnosis/Procedures: #Generalized weakness
#Mild traumatic rhabdomyolysis
#Essential Hypertension
#Fall/ambulatory dysfunction
#History of of hemorrhagic stroke/Transient Ischemic Attack
Condition: Fair
Diet: Low Cholesterol and 2 Gram Sodium
Activity: As tolerated
Driving Restrictions: No driving
Other Services: VN
Referrals:
Adams Rios MD [Family Provider] - in less than 1 week
Prescriptions:
Continued
atorvastatin 40 MG tablet
40 mg PO QPM
lisinopril 5 MG tablet
5 mg PO DAILY
camphor-menthol 0.2-3.5 % Gel
1 applic TOPICAL DAILY Qty: 0
aspirin 81 mg Tablet,Delayed Release (Dr/Ec)
81 mg PO DAILY
trolamine salicylate [Aspercreme] 10 % Cream
1 applic TOPICAL DAILY PRN (Reason: shoulder pain)
Discontinued
ibuprofen [Advil] 200 MG tablet
600 mg PO TID PRN (Reason: mild pain)
Discharge Orders:
Discharge Patient (As Directed); Ordered 10/15/23
Ordered By: Adam Buck
Discharge Date and Time
Discharge Date/Time: 10/15/23 17:56
== END 2023-10-15 17:56 | disposition home health service (06) ==
LOC: 4 WEST ACU 16:09
PROVIDERS: Registered Nurse; ADMITTING PHYSICIAN Hospitalist; ATTENDING PHYSICIAN Hospitalist; EMERGENCY PHYSICIAN Student in an Organized Health Care Education/Training Program; FAMILY PHYSICIAN Internal Medicine
DX: R53.1 Weakness (principal); T79.6XXA Traumatic ischemia of muscle, initial encounter; W19.XXXA Unspecified fall, initial encounter; Y93.9 Activity, unspecified; Y92.009 Unspecified place in unspecified non-institutional (private) residence as the place of occurrence of the external cause; I10 Essential (primary) hypertension; R53.83 Other fatigue; J30.1 Allergic rhinitis due to pollen; J30.89 Other allergic rhinitis; R26.2 Difficulty in walking, not elsewhere classified; R74.8 Abnormal levels of other serum enzymes; E78.5 Hyperlipidemia, unspecified; Z85.46 Personal history of malignant neoplasm of prostate; Z90.79 Acquired absence of other genital organ(s); Z86.73 Personal history of transient ischemic attack (TIA), and cerebral infarction without residual deficits; Z92.3 Personal history of irradiation; Z60.2 Problems related to living alone; Z91.81 History of falling; Z11.52 Encounter for screening for COVID-19; Z87.891 Personal history of nicotine dependence; Z88.1 Allergy status to other antibiotic agents; Z79.82 Long term (current) use of aspirin
CPT/HCPCS: 70450; 80048; 80053; 81003; 82550; 82553; 83735; 84484; 85025; 85027; 87811; 93005; 97116; 97167; 97530; 99285; G0378